=== PATIENT | female | born 1950 | race Caucasian/White ===

== ENCOUNTER → 2018-08-22 | Outpatient (CLI) | payer MEDICARE ==
--- NOTE | 2018-08-22 19:48 | CONS ---
CONSULTATION DATE OF SERVICE: 08/22/2018 58-year-old lady who has been evaluated in the sleep center for possible obstructive sleep apnea-hypopnea syndrome. HISTORY OF PRESENT ILLNESS/SLEEP WAKE EVALUATION: SLEEP SCHEDULE: Patient usual sleep schedule from around 10 p.m. until 6:30 or 7 am. FALLING ASLEEP: She does have problem with falling asleep, although no TV in bedroom. DURING SLEEP: She snores very loud according to her and he witnessed episodes of stopped breathing during the sleep. She wakes up from sleep up to 10 times with dry mouth, sweating, restless legs and nocturia up to 1 time. DURING THE DAY/SLEEP WAKE EVALUATION: In the morning patient wakes up tired, has difficulties to pay attention, falling asleep during the day, has problems with memory, concentration, irritability, depression. She takes naps 1-2 times a day at 3:00 pm. Usually she does not feel refreshed after the naps. She does not see vivid dreams during the naps. No history of hypnagogic hallucinations, sleep paralysis or cataplexy. Briggs Sleepiness Scale significantly increased to 18. PAST MEDICAL HISTORY: Positive for asthma, seasonal allergies, hypertension, hyperlipidemia, depression, bipolar. PAST SURGICAL HISTORY: Total hysterectomy in 1995, nasal polyps removed 2005, right breast benign tumor has been removed. Tonsillectomy, adenoidectomy. SOCIAL HISTORY: Positive for smoking in the past, quit 33 years ago. Alcohol consumption none. FAMILY HISTORY: Hypertension, heart problems, hyperlipidemia, stroke, arthritis, asthma, sinus headache, bronchitis, emphysema, snoring, tuberculosis, pneumonia, headaches, acid reflux, ulcers, diabetes, nasal polyps, thyroid problems, anemia, mental illness, restless legs, crib . REVIEW OF SYSTEMS: Multiple awakenings from sleep, sleepiness during the day. PHYSICAL EXAM: lady without distress. BP 172/79, HR 70, RR 16, height 5 feet 6-1/2 inches, weight 214.4, body mass index 34, temperature 98.0, oxygen saturation on room air 97%. HEENT: Oropharynx: Practically normal position of soft palate vertically but very short distance between the soft palate and posterior pharyngeal wall. Neck Supple, no JVD. Thyroid is not palpable. LUNGS Clear to percussion and to auscultation. Good air exchange. No wheezing or rhonchi. HEART S1, S2 regular. No murmurs, gallops, or rubs. ABDOMEN Soft and nontender. Bowel sounds are present. No organomegaly appreciated. EXTREMITIES No clubbing or cyanosis. 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 Cranial nerves 2 to 7 intact. There is no fasciculation or atrophy. noted. No focal deficits observed. IMPRESSION: 1. Snoring, witnessed episodes of stopped breathing during the sleep. Short distance between soft palate and posterior pharyngeal wall, sleepiness. Obstructive sleep apnea-hypopnea syndrome. 2. Obesity, BMI 34. 3. Hypertension. 4. Asthma. 5. Seasonal allergies. 6. Hyperlipidemia. 7. History of depression. 8. History of bipolar disorder. 9. Status post total hysterectomy in 1995. 10.Status post nasal polyps removed in 2005. 11.Status post right breast surgery for benign tumor removal. 12.Status post tonsillectomy and adenoidectomy many years ago. PLAN: 1. Polysomnography for evaluation of patient's breathing during sleep. 2. CPAP/BiPAP titration if sleep study confirms obstructive sleep apnea-hypopnea syndrome. 3. Preferable position during sleep on the side. 4. No driving if patient feels any sleepiness. 5. I will see patient for follow up visit to explain results of testing and following plan. Thank you very much for referring this patient for consultation. Sincerely, Martín Morley MD, PhD, FAASM Diplomat of [place] [place] [facility] MMODL / IJN: [id number] /
== END | disposition home or self-care (01) ==
LOC: SLEEP 14:09
PROVIDERS: ATTEND Internal Medicine
DX: G47.33 Obstructive sleep apnea (adult) (pediatric) (principal); M27.8 Other specified diseases of jaws; R35.1 Nocturia; G25.81 Restless legs syndrome; E66.9 Obesity, unspecified; I10 Essential (primary) hypertension; J45.909 Unspecified asthma, uncomplicated; E78.5 Hyperlipidemia, unspecified; F32.9 Major depressive disorder, single episode, unspecified; Z90.710 Acquired absence of both cervix and uterus; Z68.34 Body mass index [BMI] 34.0-34.9, adult; Z90.89 Acquired absence of other organs; Z98.890 Other specified postprocedural states; Z87.891 Personal history of nicotine dependence
CPT/HCPCS: 99211